=== PATIENT | female | born 1965 | race Two or more races ===

== ENCOUNTER 2016-11-25 01:39 | Emergency (ER) | payer SELFPAY ==
[~2016-11-25] VITALS: Ht 157.5 cm; Wt 63.5 kg
--- NOTE | 2016-11-25 01:50 | NUR ---
TO BED 09 A 51 YO FEMALE BIBA#78 PT STATES SHE WOKE UP TO USE THE RESTROOM AND STARTED FEELING ITCHY AND HAD TROUBLE BREATHING AND STARTED TO PANIC. UPON ARRIVAL TO ER, PATIENT IS AAOX4, AMBULATORY, NO S/S OF ACUTE DISTRESS. VSS. INITIATED COMFORT AND SAFETY MEASURES. ALSO NOTED PATIENT TO HAVE GENERALIZED BODY RASHES WITH ITCHINESS SINCE "A WEEK AGO." GOWNED. AWAITING FOR ER MD KUMAR.
[2016-11-25] MEDS ORDERED: FAMOTIDINE (20 MG) 20 MG TABLET PO ONE (02:30)
[2016-11-25] MEDS ORDERED: diphenhydrAMINE HCL 25 MG CAPSULE PO ONE (02:30)
[2016-11-25] MEDS ORDERED: diphenhydrAMINE HCL 50 MG CAPSULE ONE (02:32)
[2016-11-25] MEDS ORDERED: FAMOTIDINE (20 MG) 20 MG TABLET ONE (02:32)
--- NOTE | 2016-11-25 04:13 | NUR ---
DPatient discharged to home in stable condition via taxi as patient was instructed not to drive. Written and verbal after care instructions given. Patient verbalizes understanding of instruction. Patient is ambulatory with steady gait, no further complaints
[2016-11-25 04:15] VITALS: BP 134/72
== END 2016-11-25 04:15 | disposition home or self-care (01) ==
LOC: ER 01:42
DX: F41.9 Anxiety disorder, unspecified (principal); L50.9 Urticaria, unspecified
CPT/HCPCS: A4606; Q0163; Z7610